=== PATIENT | female | born 1945 | race Caucasian/White ===

== ENCOUNTER 2019-01-17 07:07 | Inpatient (IN) | payer MEDICARE, MEDICAID ==
[~2019-01-17] VITALS: Ht 157.5 cm; Wt 104.3 kg
[2019-01-17] MEDS ORDERED: ROPIVACAINE HCL 10MG/ML 20 ML VIAL EPI ONE (12:32)
[2019-01-17] MEDS ORDERED: BUPIVACAINE/EPINEPH/PF 0.25%/0.0005 10ML ONE (12:36)
[2019-01-17] MEDS ORDERED: NORMAL SALINE 0.9% 10 ML SYR ONE ×2 (12:36→13:58)
[2019-01-17] MEDS ORDERED: BACITRACIN 50,000 UNITS/VIAL ONE ×2 (12:36→13:58)
[2019-01-17] MEDS ORDERED: NEOSTIGMINE METHYLSULFATE 1MG/ML 10 ML VIAL ONE (12:48)
[2019-01-17] MEDS ORDERED: FENTANYL CITRATE/PF 50MCG/ML 2ML VIAL ONE (12:48)
[2019-01-17] MEDS ORDERED: ROCURONIUM BROMIDE 10MG/ML VIAL 5ML IV ONE (12:48)
[2019-01-17] MEDS ORDERED: PROPOFOL 200MG/20ML VIAL IV ONE (12:48)
[2019-01-17] MEDS ORDERED: GLYCOPYRROLATE 0.2 MG/ML 2ML VIAL ONE (12:49)
[2019-01-17] MEDS ORDERED: PHENYLEPHRINE HCL 10 MG/ML 1ML (IV VIAL) IV ONE (12:49)
[2019-01-17] MEDS ORDERED: SUCCINYLCHOLINE CHLORIDE 200MG/10ML IV ONE (12:49)
[2019-01-17] MEDS ORDERED: ONDANSETRON HCL 4MG/2ML INJ ONE (12:49)
[2019-01-17] MEDS ORDERED: LIDOCAINE HCL/PF 1% 10 MG/ML 5ML VIAL ONE (12:49)
[2019-01-17] MEDS ORDERED: METOCLOPRAMIDE HCL 10MG/2ML VIAL ONE (12:49)
[2019-01-17] MEDS ORDERED: CEFAZOLIN SODIUM 1000MG/VIAL ONE (12:49)
[2019-01-17] MEDS ORDERED: MIDAZOLAM HCL 2 MG/2 ML VIAL ONE (12:49)
[2019-01-17] MEDS ORDERED: EPHEDRINE SULFATE 50MG/ML VIAL ONE (12:49)
[2019-01-17] MEDS ORDERED: SODIUM CHLORIDE 0.9% 10ML VIAL ONE (12:49)
[2019-01-17] MEDS ORDERED: TRANEXAMIC ACID 1,000 MG in SODIUM CHLORIDE 0.9% 100 ML IV ONE (13:00)
[2019-01-17] MEDS ORDERED: VANCOMYCIN HCL 1 GM/VIAL ONE (14:26)
[2019-01-17] MEDS ORDERED: HYDROCODONE/ACETAMINOPHEN 5/325MG TABLET PO PRN ×2 (15:45)
[2019-01-17] MEDS ORDERED: MORPHINE SULFATE 2 MG/ML CPJ (NOT FOR IM USE) IV PRN ×2 (15:45)
[2019-01-17] MEDS ORDERED: MAGNESIUM HYDROXIDE 400MG/5ML 30ML UDC PO PRN (15:45)
[2019-01-17] MEDS ORDERED: ACETAMINOPHEN 325MG TABLET PO PRN (15:45)
[2019-01-17] MEDS ORDERED: MORPHINE SULFATE 4 MG/ML CPJ (NOT FOR IM USE) IV PRN (15:45)
[2019-01-17] MEDS ORDERED: ONDANSETRON HCL 4MG/2ML INJ IV PRN ×2 (15:45)
[2019-01-17] MEDS ORDERED: MEPERIDINE HCL/PF 25MG/ML CPJ IV PRN (15:45)
[2019-01-17] MEDS: HYDROMORPHONE HCL/PF 2MG/ML CPJ IV PRN ×5 (15:50→20:28)
[2019-01-17] MEDS ORDERED: METO-385 PO (15:57)
[2019-01-17] MEDS ORDERED: AMLO10TA80 PO (15:57)
[2019-01-17] MEDS ORDERED: METF-415 PO (15:57)
[2019-01-17] MEDS ORDERED: PARO10TA74 PO (15:57)
[2019-01-17] MEDS ORDERED: MEMA10TA19 PO (15:57)
[2019-01-17] MEDS ORDERED: POTA8TAB8 PO (15:57)
[2019-01-17] MEDS ORDERED: CHLO25TA2 PO (15:57)
[2019-01-17] MEDS ORDERED: LOSA50TA41 PO (15:57)
[2019-01-17] MEDS ORDERED: GABA-529 PO (15:57)
[2019-01-17] MEDS ORDERED: ALEN70TA68 PO (15:57)
[2019-01-17] MEDS ORDERED: SODIUM CHLORIDE 0.9% 1,000 ML IV ONE (16:15)
[2019-01-17 19:35] VITALS: BP 115/42
[2019-01-17 20:00] VITALS: BP 115/42
[2019-01-17] MEDS ORDERED: SODIUM CHLORIDE 0.9% 1,000 ML IV SCH (21:00)
[2019-01-17] MEDS ORDERED: ZOLPIDEM TARTRATE 5MG TABLET PO PRN (21:00)
[2019-01-17] MEDS: CEFAZOLIN 2,000 MG in DEXT 5% WATER 100 ML IV SCH (23:17)
[2019-01-18] VITALS: BP 121/48
[2019-01-18] MEDS: HYDROCODONE/ACETAMINOPHEN 5/325MG TABLET PO PRN ×2 (03:35→08:52)
[2019-01-18 04:00] VITALS: BP 148/66
[2019-01-18] MEDS: CEFAZOLIN 2,000 MG in DEXT 5% WATER 100 ML IV SCH (05:32)
[2019-01-18 06:42] LABS: BASOPHILS % 0.6 % (0.0-2.0); EOSINOPHILS % 0.5 % (0.0-5.0); HEMATOCRIT. 29.1 % (36.0-48.0); HEMOGLOBIN. 9.9 g/dL (12.0-16.0); LYMPHOCYTES % 15.5 % (20.0-50.0); MEAN CORPUSCULAR HEMOGLOBIN 32.8 pg (28.0-32.0); MEAN CORPUSCULAR VOLUME 96.7 fL (81.0-99.0); MONOCYTES % 9.9 % (2.0-8.0); NEUTROPHILS % 73.5 % (40.0-76.0); PLATELET 245 x1000/uL (130-400); RED BLOOD CELL COUNT 3.01 mill/uL (4.2-5.4); RED CELL DISTRIBUTION WIDTH 13.1 % (11.6-14.6)
[2019-01-18 08:00] VITALS: BP 137/57
[2019-01-18] MEDS: DOCUSATE SODIUM 100MG CAPSULE PO SCH ×2 (08:52→17:24)
[2019-01-18] MEDS: ASPIRIN 325MG EC TABLET PO SCH (08:53)
[2019-01-18] MEDS ORDERED: TRAMADOL 50MG TABLET PO PRN (09:30)
[2019-01-18] MEDS: METOPROLOL TARTRATE 50MG TABLET PO SCH (10:00)
[2019-01-18] MEDS: LOSARTAN POTASSIUM 50 MG TABLET PO SCH (10:00)
[2019-01-18] MEDS: AMLODIPINE 10MG TABLET PO SCH (10:00)
[2019-01-18] MEDS: CHLORTHALIDONE 25MG TABLET PO SCH (10:00)
[2019-01-18 12:00] VITALS: BP 102/44
[2019-01-18] MEDS: GABAPENTIN 100MG CAPSULE PO SCH ×3 (12:32→17:24)
[2019-01-18] MEDS: POTASSIUM CHLORIDE 8 MEQ TABLET.SA PO SCH ×2 (12:32→17:24)
[2019-01-18] MEDS ORDERED: DEXTROSE 50% WATER 50ML SYRINGE IV PRN (13:45)
[2019-01-18 16:00] VITALS: BP 147/58
[2019-01-18] MEDS: METFORMIN HCL 850MG TABLET PO SCH ×2 (17:24→17:50)
[2019-01-18] MEDS: MEMANTINE HCL 10MG TABLET PO SCH (17:24)
[2019-01-18] MEDS: BLOOD SUGAR DIAGNOSTIC STRIP TEST SCH ×2 (17:52→20:41)
[2019-01-18] MEDS: INSULIN LISPRO 100 UNITS/ML SUBCUT SCH ×2 (18:20→21:05)
[2019-01-18 20:00] VITALS: BP 116/53
[2019-01-18] MEDS ORDERED: ACETAMINOPHEN 325MG TABLET PO PRN (20:45)
[2019-01-18] MEDS ORDERED: PAROXETINE HCL 10MG TABLET PO SCH (21:00)
[2019-01-18] MEDS ORDERED: RISPERIDONE 0.5MG TABLET PO SCH (21:00)
[2019-01-19] VITALS: BP 96/52
[2019-01-19 04:00] VITALS: BP 101/58
[2019-01-19 06:40] LABS: BASOPHILS % 0.6 % (0.0-2.0); EOSINOPHILS % 0.3 % (0.0-5.0); HEMATOCRIT. 29.9 % (36.0-48.0); HEMOGLOBIN. 10.2 g/dL (12.0-16.0); LYMPHOCYTES % 23.8 % (20.0-50.0); MEAN CORPUSCULAR HEMOGLOBIN 32.8 pg (28.0-32.0); MEAN CORPUSCULAR VOLUME 96.5 fL (81.0-99.0); MEAN PLATELET VOLUME 8.3 fl (7.4-10.4); MONOCYTES % 11.4 % (2.0-8.0); NEUTROPHILS % 63.9 % (40.0-76.0); PLATELET 238 x1000/uL (130-400); RED BLOOD CELL COUNT 3.09 mill/uL (4.2-5.4); RED CELL DISTRIBUTION WIDTH 13.4 % (11.6-14.6)
[2019-01-19] MEDS: BLOOD SUGAR DIAGNOSTIC STRIP TEST SCH ×2 (06:48→12:43)
[2019-01-19 08:00] VITALS: BP 138/54
[2019-01-19] MEDS: ASPIRIN 325MG EC TABLET PO SCH (08:44)
[2019-01-19] MEDS: AMLODIPINE 10MG TABLET PO SCH (08:45)
[2019-01-19] MEDS: DOCUSATE SODIUM 100MG CAPSULE PO SCH (08:46)
[2019-01-19] MEDS: CHLORTHALIDONE 25MG TABLET PO SCH (08:46)
[2019-01-19] MEDS: POTASSIUM CHLORIDE 8 MEQ TABLET.SA PO SCH (08:46)
[2019-01-19] MEDS: METOPROLOL TARTRATE 50MG TABLET PO SCH (08:46)
[2019-01-19] MEDS: METFORMIN HCL 850MG TABLET PO SCH (08:46)
[2019-01-19] MEDS: LOSARTAN POTASSIUM 50 MG TABLET PO SCH (08:46)
[2019-01-19] MEDS: INSULIN LISPRO 100 UNITS/ML SUBCUT SCH ×2 (09:05→12:58)
[2019-01-19] MEDS: GABAPENTIN 100MG CAPSULE PO SCH ×2 (09:08→12:52)
[2019-01-19] MEDS ORDERED: PNEUMOCOCCAL 23-VAL P-SAC VAC 0.5 ML IM ONE (10:00)
[2019-01-19] MEDS ORDERED: INFLUENZA VIRUS VACCINE(AFLURIA) 0.5ML SYR IM ONE (10:00)
[2019-01-19] MEDS: MEMANTINE HCL 10MG TABLET PO SCH (11:47)
[2019-01-19 12:00] VITALS: BP 111/54
[2019-01-19 14:52] VITALS: BP 116/54
== END 2019-01-19 16:12 | disposition home or self-care (01) | DRG 317 ==
LOC: OR 07:07 → 6EST 18:35
PROVIDERS: ADMIT Orthopaedic Surgery; ATTEND Orthopaedic Surgery
PROC: 0LQL0ZZ Repair Right Upper Leg Tendon, Open Approach (ICD-10-PCS; principal; 2019-01-17)
DX: S76.111A Strain of right quadriceps muscle, fascia and tendon, initial encounter (principal); E11.9 Type 2 diabetes mellitus without complications; F03.90 Unspecified dementia, unspecified severity, without behavioral disturbance, psychotic disturbance, mood disturbance, and anxiety; Z68.41 Body mass index [BMI] 40.0-44.9, adult; E66.9 Obesity, unspecified; E78.5 Hyperlipidemia, unspecified; G83.9 Paralytic syndrome, unspecified; I10 Essential (primary) hypertension; M81.0 Age-related osteoporosis without current pathological fracture; Z96.651 Presence of right artificial knee joint; R29.6 Repeated falls; X58.XXXA Exposure to other specified factors, initial encounter; Y93.89 Activity, other specified; Y92.89 Other specified places as the place of occurrence of the external cause; Y99.8 Other external cause status; Z79.899 Other long term (current) drug therapy; Z79.84 Long term (current) use of oral hypoglycemic drugs
CPT/HCPCS: 36415; 80048; 82962; 86850; 86900; 88304; 90686; 90732; 97110; 97116; 97162; 97166; J0171; J0330; J0690; J1170; J1815; J2250; J2370; J2405; J2704; J2710; J2765; J2795; J3010; J3370; J3490; J7050; J7060

== ENCOUNTER 2021-07-15 23:04 | Emergency (ER) | payer MEDICARE, OTHER ==
[~2021-07-15] VITALS: Ht 172.7 cm; Wt 100.0 kg
[~2021-07-15 23:04] MED LIST: ALEN70TA79 PO; AMLO10TA80 PO; CHLO25TA2 PO; GABA-529 PO; LOSA50TA41 PO; MEMA10TA55 PO; METF-415 PO; METO-385 PO; PARO10TA74 PO; POTA8TAB8 PO
[2021-07-16 01:21] LABS: BASOPHILS % 0.4 % (0.0-2.0); EOSINOPHILS % 1.9 % (0.0-5.0); HEMATOCRIT. 34.9 % (36.0-48.0); HEMOGLOBIN. 11.9 g/dL (12.0-16.0); LYMPHOCYTES % 34.4 % (20.0-50.0); MEAN CORPUSCULAR HEMOGLOBIN 32.1 pg (28.0-32.0); MEAN CORPUSCULAR VOLUME 94.5 fL (81.0-99.0); MEAN PLATELET VOLUME 7.7 fl (7.4-10.4); MONOCYTES % 10.7 % (2.0-8.0); NEUTROPHILS % 52.6 % (40.0-76.0); PLATELET 234 x1000/uL (130-400)
[2021-07-16 01:31] LABS: CHLORIDE 108 mEq/L (98-107)
[2021-07-16] MEDS ORDERED: ATOR40TA70 MT ×2 (05:22→05:23)
[2021-07-16] MEDS ORDERED: ASPIRIN 325MG EC TABLET PO ONE (07:15)
[2021-07-16] MEDS ORDERED: ASPIRIN 325MG EC TABLET PO NR (11:15)
[2021-07-16 12:00] VITALS: BP 169/71
== END 2021-07-16 13:08 | disposition left against medical advice (07) ==
LOC: ER 23:04
DX: G45.9 Transient cerebral ischemic attack, unspecified (principal); E86.0 Dehydration; I11.9 Hypertensive heart disease without heart failure; E11.9 Type 2 diabetes mellitus without complications; Z79.84 Long term (current) use of oral hypoglycemic drugs
CPT/HCPCS: 36415; 71045; 80053; 83605; 83880; 84484; 85025; 99285